=== PATIENT | female | born 1950 | race Caucasian/White ===

== ENCOUNTER → 2017-10-26 | Outpatient (CLI) | payer MEDICARE, OTHER ==
--- NOTE | 2017-10-28 10:08 | RADIOLOGY REPORT (SQ) ---
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 RADIONUCLIDE AND DOSE: 9.85 mCi F18 FDG The route of agent administration: Intravenous FASTING BLOOD SUGAR: 75 mg/dl CONTRAST TYPE AND DOSE: No CT contrast given. TECHNIQUE: Blood glucose level was verified. Above dose of FDG was injected intravenously. 2-D seg mented attenuation correction images were obtained from the base of the skull to the midthighs. Nonc ontrast CT images were obtained for attenuation correction and fusion with emission images. CT image s were performed without oral or intravenous contrast and are not sensitive for parenchymal lesions. A series of overlapping emission PET images were obtained. Images reviewed and manipulated at [facility] work [facility] by the radiologist. Images stored on PACS. LIMITATIONS: None. FINDINGS: HEAD AND NECK: No areas of abnormal metabolic activity in the soft tissues of the head and neck. CHEST: No areas of abnormal metabolic activity in the chest. ABDOMEN AND PELVIS: No areas of abnormal metabolic activity in the abdomen or pelvis. Expected physi ologic activity is present in the genitourinary system and bowel. PROXIMAL LOWER EXTREMITIES: No areas of abnormal metabolic activity in the soft tissues of the lower extremities. BONES: No abnormal metabolic activity in the visualized skeleton. ADDITIONAL CT FINDINGS: Calcified mediastinal and left hilar nodes. Distal small bowel anastomosis. OTHER: No other significant findings. IMPRESSION: No evidence of recurrent lymphoma. TECHNICAL DOCUMENTATION: JOB ID: [id number] [employer]- All Rights Reserved Reading location - IP/workstation name: [email or web address]
== END ==
LOC: RAD 14:23
PROVIDERS: ATTEND Internal Medicine Medical Oncology
DX: C82.83 Other types of follicular lymphoma, intra-abdominal lymph nodes (principal)
CPT/HCPCS: 78815; A9552